=== PATIENT | male | born 1980 | race American Indian/Alaskan Native ===

== ENCOUNTER 2021-05-03 22:23 | Emergency (ER) | payer SELFPAY ==
--- NOTE | 2021-05-04 01:07 | Emergency Department Report ---
Chief Complaint: Chest Pain Stated Complaint: WEAK/COLD - HPI History of Present Illness: 41-year-old -Stateless male presents to the emergency department via EMS with a complaint of some chest pain to the right side of the chest that started about 4 hours prior to presentation. The patient also says that he felt like he was getting hypothermic secondary to the rain and spending time outside. Patient says that he lives in [place], however he "took the wrong turn" while driving and says that he got lost in [facility]. Patient admits to being a tobacco smoker, occasionally smoking marijuana, and drinking on the weekends. He denies any other past medical history. However, the patient is AAO x2 at this time, to person and place but not time. - Exam Vital Signs: Vital Signs 05/03/21 23:16 Temperature 97.6 F Pulse Rate 71 Respiratory 16 Rate Blood Pressure 137/75 O2 Sat by Pulse 100 Oximetry Physical Exam: Patient is awake but confused, AAO x2. Heart and lung sounds are normal to auscultation. No respiratory or acute distress seen. Patient is moving all extremities. MSE screening note: Focused history and physical exam performed. Due to findings the following was ordered: Patient will be seen in the main emergency department. I have ordered an EKG, labs including troponin, blood alcohol level, UDS, and a 2 view chest x-ray. ED Disposition for MSE Condition: Stable
[2021-05-04 01:30] LABS: Basophils # (Auto) 0.1 K/mm3 (0.0-0.1); Basophils % (Auto) 0.8 % (0.0-1.8); Eosinophils # (Auto) 0.1 K/mm3 (0.0-0.4); Eosinophils % (Auto) 1.6 % (0.0-4.3); Hematocrit 41.7 % (35.5-45.6); Hemoglobin 13.8 gm/dl (11.8-15.2); Lymphocytes # (Auto) 1.9 K/mm3 (1.2-5.4); Lymphocytes % (Auto) 20.1 % (13.4-35.0); Mean Corpuscular HGB Conc 33 % (32-34); Mean Corpuscular Volume 90 fl (84-94); Monocytes # (Auto) 0.8 K/mm3 (0.0-0.8); Monocytes % (Auto) 8.1 % (0.0-7.3); Platelet Count 352 K/mm3 (140-440); Red Blood Count 4.64 M/mm3 (3.65-5.03); Red Cell Distribution Width 14.7 % (13.2-15.2)
[2021-05-04 01:52] LABS: Alanine Aminotransferase 22 units/L (7-56); Albumin 5.1 g/dL (3.9-5); BUN/Creatinine Ratio 14; Blood Urea Nitrogen 11 mg/dL (9-20); Calcium 9.9 mg/dL (8.4-10.2); Hemolysis Index 20
--- NOTE | 2021-05-04 02:01 | XRay Report ---
CHEST 2 VIEWS INDICATION / CLINICAL INFORMATION: Chest Pain. COMPARISON: None available. FINDINGS: SUPPORT DEVICES: None. HEART / MEDIASTINUM: No significant abnormality. LUNGS / PLEURA: No significant pulmonary or pleural abnormality. No pneumothorax. ADDITIONAL FINDINGS: No significant additional findings. IMPRESSION: 1. No acute findings. Signer Name: Crow Baker MD Signed: 05/04/2021 1:57 AM Workstation Name: [id number]
--- NOTE | 2021-05-04 02:08 | Emergency Department Report ---
HPI - General Chief Complaint: Chest Pain Time Seen by Provider: 05/04/21 01:43 - HPI HPI: This is a 41-year-old -J[place]ican male presents to the emergency department via EMS with the complaints of chest pain, "I felt like I might get hypothermia", and the need for a mental health assessment. Patient says that he lives in [place] but that he was in the area with "a girl I know." At some point, earlier in the evening, they parted ways and the patient found himself lost at a convenience store. He was hanging out outside of the convenience store for about 4 to 5 hours, sometimes in the rain. Patient says that he began developing some right-sided chest pain. However, at the time of my examination, the patient says that the chest pain has since resolved. He did not take anything for symptoms prior to presentation. On top of the chest pain, the patient has been dealing with auditory/command hallucinations that are telling him to slit his wrist and kill himself. The patient has a history of schizophrenia and recently ran out of his Sunnovations. He denies any homicidal ideations. The patient is a tobacco smoker. Patient admits to occasionally sm oking marijuana. He admits to some intermittent alcohol use, mostly on the weekends, but denies any history of alcohol dependence or withdrawal complications. ED Past Medical Hx - Past Medical History Hx Hypertension: Yes - Surgical History Past Surgical History?: No - Social History Smoking Status: Current Every Day Smoker - Medications Home Medications: Home Medications Medication Instructions Recorded Confirmed Last Taken Type Ziprasidone [Geodon] 20 mg PO BID #60 capsule 05/04/21 Unknown Rx ED Review of Systems ROS: Stated complaint: WEAK/COLD Other details as noted in HPI Comment: All other systems reviewed and negative Constitutional: denies: chills, fever Eyes: denies: eye pain, vision change ENT: denies: ear pain, throat pain Respiratory: denies: cough, shortness of breath Cardiovascular: chest pain (resolved). denies: palpitations Gastrointestinal: denies: abdominal pain, vomiting Genitourinary: denies: dysuria, discharge Musculoskeletal: denies: back pain, arthralgia Skin: denies: rash, lesions Neurological: denies: headache, weakness Psychiatric: auditory hallucinations, suicidal thoughts. denies: homicidal thoughts Physical Exam - Physical Exam Vital Signs: Vital Signs 05/03/21 23:16 Temperature 97.6 F Pulse Rate 71 Respiratory 16 Rate Blood Pressure 137/75 O2 Sat by Pulse 100 Oximetry Physical Exam: GENERAL: The patient is well-developed well-nourished. HENT: Normocephalic. Atraumatic. Patient has moist mucous membranes. EYES: Extraocular motions are intact. NECK: Supple. Trachea is midline. CHEST/LUNGS: Clear to auscultation. There is no respiratory distress noted. HEART/CARDIOVASCULAR: Regular. There is no tachycardia. There is no murmur. ABDOMEN: Abdomen is soft, nontender. Patient has normal bowel sounds. There is no abdominal distention. SKIN: Skin is warm and dry. NEURO: The patient is awake, alert, and cooperative. The patient has no focal neurologic deficits. Normal speech. MUSCULOSKELETAL: There is no tenderness or deformity. There is no limitation range of motion. ED Course Vital Signs 05/03/21 23:16 Temperature 97.6 F Pulse Rate 71 Respiratory 16 Rate Blood Pressure 137/75 O2 Sat by Pulse 100 Oximetry ED Medical Decision Making - Lab Data Result diagrams: 05/04/21 01:16 05/04/21 01:16 - EKG Data -: EKG Interpreted by Me EKG shows normal: sinus rhythm, axis, intervals, QRS complexes, ST-T waves Rate: normal - EKG Data When compared to previous EKG there are: previous EKG unavailable Interpretation: normal EKG - Radiology Data Radiology results: image reviewed interpreted by me: Chest x-ray does not show any acute process. There are no pleural effusions, obvious pneumonia and there is no pneumothorax. - Medical Decision Making This patient presents with a complaint of some chest discomfort that started earlier in the evening but has since resolved. He also presents for a mental health evaluation. Initially, during screening, I had some concern that the patient was confused. However, by the time the patient got back to room #25, he appears oriented, AAO x3. On examination he does not have any focal, motor or sensory deficits and his cranial nerves are intact. Heart and lung sounds are normal to auscultation. The patient does not appear in any respiratory or acute distress. He was seen ambulatory in the emergency department and both appears and feels stable. EKG did not have any morphology consistent with ST elevation myocardial infarction or any dysrhythmia. Chest x-ray does not show any pneumonia, pleural effusions, pneumothorax, focal consolidation, widened mediastinum, or any other acute process. Patient's labs have been mostly unremarkable including CBC, metabolic panel, negative troponins x2, urinalysis, and blood alcohol level. Urine drug screen is positive for both cocaine and methamphetamines. When the patient came back to the main emergency department, he told his nurse, and later expressed to me as well, that he is having suicidal ideations. The patient also says that he has a history of schizophrenia and has been having a uditory/command hallucinations that are telling him to cut his wrist and kill himself. For this reason he has been made a 1013 and placed on an ED hold. Vital signs have been reassuring throughout his ED course. The patient has a low heart score and low SERGO score. His chest pain has not returned. He appears medically cleared for psychiatric placement. He will be seen by the psychiatric team in the morning for further disposition. Critical Care Time: No Critical care attestation.: If time is entered above; I have spent that time in minutes in the direct care of this critically ill patient, excluding procedure time. ED Disposition Clinical Impression: Polysubstance abuse, History of command hallucinations, Suicidal ideations, Atypical chest pain, Cocaine use, Amphetamine use disorder, mild Schizophrenia Qualifiers: Schizophrenia type: unspecified Qualified Code(s): F20.9 - Schizophrenia, unspecified Disposition: DC-01 TO HOME OR SELFCARE Is pt being admited?: No Condition: Stable Instructions: Amphetamines Use Disorder, Stimulant Use Disorder-Cocaine, Substance Use Disorder and Mental Illness, Substance Use Disorder, Nonspecific Chest Pain, Adult Additional Instructions: We have faxed a referral to [facility]. They should be contacting you to arrange a follow-up appointment with a laborer rags. Please call back if you do not hear from them in the next 2 to 3 days. Please follow-up as soon as possible on an outpatient basis or use the resources provided here. Return to the emergency department should you develop thoughts of hurting yourself or others. Our [place] [facility] Community Service [facility] provides services that minimize the impact of mental illness, developmental disabilities and substance abuse in the lives of persons served and their families while supporting their inclusion in the community. LEARN MORE > Programs & Services Adult Intake Adult Counseling Child & Young Adults Behavioral Health Services Development Disability Addictive Disease Health & Wellness Adult Day Services Community Behavioral Health Service Areas [facility] Angelo Samuels Connect with [facility] Administrative Office [address] [place] [address] Crisis Line For Appointments, [facility] Prescriptions: Ziprasidone [Geodon] 20 mg PO BID #60 capsule Referrals: PRIMARY CARE, [Primary Care Provider] - 3-5 Days Time of Disposition: 04:23 HEART Score - HEART Score History: Slightly suspicious EKG: Normal Age: < 45 Risk factors: 1-2 risk factors Troponin: Troponin T < 0.010 ng/mL (0.00-0.029) 05/04/21 01:16 Troponin: < normal limit HEART Score: 1 - Critical Actions Critical Actions: 0-3 pts:0.9-1.7%risk of adverse cardiac event.Candidate for discharge
[2021-05-04 03:00] LABS: Bilirubin,Urine NEG (Negative); Blood,Urine NEG (Negative); Color,Urine Colorless (Yellow); Protein,Urine <15 mg/dL mg/dL (Negative); Urobilinogen,Urine < 2.0 mg/dL (<2.0)
[2021-05-04 03:08] LABS: Amphetamine Screen,Urine PRESUMPTIVE POSITIVE; Benzodiazepines Screen,Urine PRESUMPTIVE NEGATIVE; Cannabinoid Screen,Urine PRESUMPTIVE NEGATIVE; Cocaine Screen,Urine PRESUMPTIVE POSITIVE; Methadone Screen,Urine PRESUMPTIVE NEGATIVE; Opiate Screen,Urine PRESUMPTIVE NEGATIVE
[2021-05-04 09:14] VITALS: BP 110/64
--- NOTE | 2021-05-04 10:35 | Event Note ---
Date: 05/04/21 41-year-old male with history of schizophrenia who has been out of his medications for the past 2 weeks presented on 05/03/2021 with some chest pain and reported command auditory hallucinations telling him to hurt himself. He was seen by my colleague who performed labs including troponin x2, all of which were negative. Since initial evaluation, UDS has resulted and is positive for amphetamine/cocaine. Nonetheless, patient has been chest pain-free since he was brought back to the psych area. Vital signs are stable. Will reconcile and restart home medications. Currently awaiting psychiatric recommendations regarding disposition.
--- NOTE | 2021-05-04 11:35 | Consultation ---
History of Present Illness - Reason for Consult Consult date: 05/04/21 Reason for consult: psychosis - History of Present Psychiatric Illness Per ED Note: 41-year-old male with history of schizophrenia who has been out of his medications for the past 2 weeks presented on 05/03/2021 with some chest pain and reported command auditory hallucinations telling him to hurt himself. He was seen by my colleague who performed labs including troponin x2, all of which were negative. Since initial evaluation, UDS has resulted and is positive for amphetamine/cocaine. Nonetheless, patient has been chest pain-free since he was brought back to the psych area. Vital signs are stable. Will reconcile and restart home medications. Currently awaiting psychiatric recommendations regarding disposition. The patient was seen today. During my evaluatioin of 41y/o TERRY Villarreal, he is lying down awake. He is calm and cooperative. The patient is a/o x 3. He says she came in for hearing voices and being out of his meds. The patient says he was on Geodon and states he had been out for two weeks. The patient currently denies any voices during time of evaluation, but states "when I came in I was." He also denies SI/HI. The patient denies any illicit drug use outside of "weed" but his urine drug screen shows cocaine and amphetamine use. PAST PSYCHIATRIC HISTORY Diagnoses: Schizophrenia Suicide attempts or Self-harm behavior: Denies Prior psychiatric hospitalizations: Yes Substance Abuse history: admits to "weed" but is positive for cocaine and amphetamines Previous psychiatric medications tried: Geodon Outpatient treatment: yes SOCIAL HISTORY Marital Status: Single Living Arrangements: lives alone Employment Status: Unemployed Access to guns/weapons: Denies Education: high school History of Abuse: Denies Legal History: None reported REVIEW OF SYSTEMS Constitutional: Negative for weight loss ENT: Negative for stridor Respiratory: Negative for cough or hemoptysis All other systems reviewed and are negative MENTAL STATUS EXAMINATION General Appearance and Behavior: Age appropriate, dressed appropriately, calm and cooperative Cooperation: Participating Psychomotor Behavior: psychomotor normal Mood: "alright" Affect and affective range: Congruent with stated mood Thought Process: goal directed Thought Content: None Speech: Normal volume, Regular rate and rhythm, Suicidal Ideation: Denies Homicidal Ideation: Denies Hallucinations: Denies Delusions: Denies Impulse Control: Unimpaired Insight and Judgment: Limited insight and judgment, Memory: Limited Attention: Undivided Orientation: Alert, oriented Assessment and Plan (1) Polysubstance dependence with Substance Induced Mood (2) Schizophrenia Treatment Plan d/c 1013 Geodon 20mg po BID Risks, benefits and alternatives of medications discussed with the patient, questions answered and consent obtained from patient. PSYCHOTHERAPY: Supportive psychotherapy provided MEDICAL: Per primary team DELIRIUM PRECAUTIONS: Please re-orient patient frequently, keep lights on during the day, and minimize benzodiazepines and opiates as these medications could worsen patient's confusion. SHREDDING MACHINE OPERATOR: Defer to primary DISPOSITION: Do not recommend acute inpatient psychiatric hospitalization at this time. The patient understands that if SI/HI or any fear of endangerment are to arise he is to seek immediate assistance. Ware Carrier to further discuss safety plan The patient to abstain from all illicit drug use The motorboat mechanic inboard to give resources for drug rehab, CBT and med management. The patient to follow up in 7 to 14 days upon discharge Will sign off. Thank you for the consult. Please contact with any questions and/or concerns. Case staffed with Dr. Simons Medications and Allergies Allergies Allergy/AdvReac Type Severity Reaction Status Date / Time onion Allergy Angioedema Verified 05/04/21 01:05 Home Medications Medication Instructions Recorded Confirmed Last Taken Type Ziprasidone [Geodon] 20 mg PO BID #60 capsule 05/04/21 Unknown Rx Mental Status Exam - Vital signs Last Vital Signs Temp 98 F 05/04/21 09:13 Pulse 90 05/04/21 09:13 Resp 20 05/04/21 09:13 BP 110/64 05/04/21 09:13 Pulse Ox 100 05/04/21 09:13 Results Result Diagrams: 05/04/21 01:16 05/04/21 01:16 Abnormal lab results 05/04/21 05/04/21 05/04/21 Range/Units 01:16 01:16 02:03 [place] % (Auto) 8.1 H (0.0-7.3) % Sodium 134 L (137-145) mmol/L Chloride 96.3 L (98-107) mmol/L Albumin 5.1 H (3.9-5) g/dL Ur Specific [place] 1.001 L (1.003-1.030) All other labs normal.
--- NOTE | 2021-05-04 13:40 | Event Note ---
Date: 05/04/21 The patient was seen by the psychiatry team today and they discontinued the 1013. They recommended discharge home with outpatient resources and new prescription for his Geodon. Patient remains chest pain free.
--- NOTE | 2021-05-08 09:40 | Electrocardiograph Report ---
[facility] Test Date: 2021-05-04 Test Time: 01:07:09 Pat Name: ANUJA STEWART Department: Room: Gender: M Snubber: : 1980 Requested By: KIRILL HOFFMAN Order Number: [id number] Reading MD: Shilo Mendoza Measurements Intervals [place] Rate: 58 P: 53 UT: 138 QRS: 72 QRSD: 89 T: 74 QT: 426 QTc: 419 Interpretive Statements Sinus bradycardia ST elev, probable normal early repol pattern No previous ECG available for comparison Electronically Signed On 05-08-2021 9:40:19 EDT by Shilo Mendoza
== END 2021-05-04 14:52 | disposition home or self-care (01) ==
LOC: ED 22:23
DX: F20.9 Schizophrenia, unspecified (principal); R45.851 Suicidal ideations; R07.89 Other chest pain; F14.90 Cocaine use, unspecified, uncomplicated; F15.90 Other stimulant use, unspecified, uncomplicated; F19.10 Other psychoactive substance abuse, uncomplicated; I10 Essential (primary) hypertension; F17.200 Nicotine dependence, unspecified, uncomplicated; Z20.822 Contact with and (suspected) exposure to COVID-19; Z91.018 Allergy to other foods; Z86.59 Personal history of other mental and behavioral disorders
CPT/HCPCS: 36415; 71046; 80053; 80307; 81001; 84484; 85025; 93005; 99284; U0003; 80320; G0480